=== PATIENT | male | born 1975 ===

== ENCOUNTER 2021-06-20 07:41 | Outpatient (CLI) | payer OTHER ==
--- NOTE | 2021-06-20 09:17 | Ultrasound Report ---
Scrotal Ultrasound HISTORY: MASS OF LEFT TESTICLE. TECHNIQUE: Grayscale and color imaging performed. COMPARISON: None FINDINGS: Right testicle measures 4.1 x 2.4 x 3.1 cm and the left measures 4.6 x 2.4 x 3.3 cm. There is no mass or other abnormality. Each epididymis appears normal. No significant hydrocele identified. No varicocele. IMPRESSION: Unremarkable exam. Signer Name: Christian Esquivel MD Signed: 06/20/2021 9:12 AM Workstation Name: [id number]
== END 2021-06-20 07:42 | disposition home or self-care (01) ==
LOC: US 07:41
PROVIDERS: ATTEND Internal Medicine
DX: N50.89 Other specified disorders of the male genital organs (principal)
CPT/HCPCS: 93975